=== PATIENT | male | born 1980 | race Caucasian/White ===

== ENCOUNTER 2020-10-15 09:20 | Emergency (ER) | payer OTHER, SELFPAY ==
[2020-10-15 09:32] VITALS: BP 115/85; PULSE 89; RESP 16; TEMP 36.9; O2SAT 100; BMI 23.7
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
== END 2020-10-15 12:12 | disposition home or self-care (01) ==
PROVIDERS: Emergency Provider Physician Assistant
DX: S50.11XA Contusion of right forearm, initial encounter (principal); S33.5XXA Sprain of ligaments of lumbar spine, initial encounter; V89.2XXA Person injured in unspecified motor-vehicle accident, traffic, initial encounter
CPT/HCPCS: 72131; 73080; 73090; 99283

== ENCOUNTER → 2023-06-08 14:16 | Outpatient (BNVA) | payer OTHER, SELFPAY | PROVIDERS: PCP Family Medicine | DX: R19.7 Diarrhea, unspecified (principal) | CPT/HCPCS: 87338 ==